=== PATIENT | female | born 1975 | race Caucasian/White ===

== ENCOUNTER 2024-02-13 23:01 | Emergency (ER) | payer OTHER, SELFPAY ==
[2024-02-13 23:06] VITALS: BP 142/80
[2024-02-13 23:19] VITALS: BMI 22.5
[2024-02-13] MEDS: LET TOPICAL ANESTHETIC GEL 3 ML TOPICAL (23:23)
--- NOTE | 2024-02-13 23:39 | ED.SKININJ ---
Addendum entered and electronically signed by Constantine Fragoso DO 02/18/24 22:28:
Laceration size: Above the right lip was 3 cm. Stellate parts
Original Note:
HPI-Injury
General
Chief Complaint: Skin Surface Trauma
Source: patient, spouse and family (Son)
Exam Limitations: none
Time Seen by Provider: 02/13/24 23:30
Nursing documentation reviewed up to this point in time: agreed with
History of Present Illness-Injury
Initial Injury comments:
Pleasant 48-year-old female presents to the emergency department with a laceration to her upper lip. She went to go visit her horse when it reached up and bit her in the lip. Patient denies any other injury.
Phy Exam
General Physical Exam
General Presentation: well appearing and moderate distress
General age: appears stated age
General Skin: warm and dry
General Habitus: normal
General Mental: alert
General Hydration: appears well hydrated
ENT Exam
ENT Exam: EOMI, pharynx normal, neck supple and normocephalic
Eye Exam
Eye Exam: PERRL, cornea clear and conjunctiva normal
Cardiovascular Exam
Cardiovascular Exam: regular rate/rhythm, no edema and normal peripheral pulses
Pulmonary Exam
Pulmonary Exam: lungs clear, no respiratory distress, no rales, no crackles, no rhonchi, no stridor, no wheezing and no cough
Gastrointestinal Exam
Gastrointestinal Exam: normal bowel sounds, non tender, soft, no organomegaly, no pulsatile mass and non distended
Neurological Exam
Neurological Exam: alert, oriented x3 and no motor deficits
Musculoskeletal Exam
Musculoskeletal Exam: full ROM and no edema
Skin Exam
Skin Exam: normal color, warm/dry and laceration
Psychiatric Exam
Psychiatric Exam: normal mood/affect
Course
Orders/Labs/Results
Orders:
Orders
02/13/24 23:20
Lidocaine/Epinephrine/Tetracai [Let Topical Anesthetic Gel] 3 ml .ROUTE .STK-MED ONE
02/13/24 23:23
Lidocaine/Epinephrine/Tetracai [Let Topical Anesthetic Gel] 3 ml TOPICAL NOW STA
02/13/24 23:40
Amoxicillin 875 mg/Clav 125 mg [Augmentin 875 mg/125 mg] 1 tablet PO NOW STA
Tetanus/Diphth/Acelpertussis [Adacel] 0.5 ml IM .ONCE ONE
Vital Signs
Initial and Last Documented VS:
Initial Vital Signs
Pulse Resp BP Pulse Ox
88 18 142/80 100
02/13/24 23:06 02/13/24 23:06 02/13/24 23:06 02/13/24 23:06
Last Documented Vital Signs
Pulse Resp BP Pulse Ox
88 18 142/80 100
02/13/24 23:06 02/13/24 23:06 02/13/24 23:06 02/13/24 23:06
Procedures
Laceration Closure
Right Upper Lip:
Description of Wound Edges: ragged, surrounded by abrasion and macerated
Preparation: cleaned with soap & water
Anesthesia: 1% Lidocaine and Topical-LET
Revision/Debridement: minor revision
Wound exploration: extensive cleaning of contaminated wound and explored to base- no FB
Type of Closure: single layer closure
Skin Closure Material: 6-0 nylon
Number of sutures: 10
Additional information:
Patient tolerated procedure well. There are some areas of the laceration that did not approximate very well due to missing skin. Vermilion border was closed first and approximated well. There was some maceration on either side but I feel that it
lined up fairly well.
*Critical Care Note
Total Time (30-74mins, 75-104mins- exclusive of procedures): Not Applicable
Update Note
Update Note:
I spoke to plastic surgeon, though not on-call, graciously agreed to see patient in his office for routine visit and possible revision.
ED Attending Note
-
Portions of this chart may have been created with voice recognition software.� Occasional wrong word or��sound alike� substitutions may have occurred due to the inherent limitations of voice recognition software.
Discharge Plan
Departure
Patient Disposition: Home (Routine Discharge)
Date of Disposition: 02/14/24
Time of Disposition: 00:42
Patient with high blood pressure during this ER visit?: Yes
Condition: Good
Discharge Problem:
Animal bite of face, Laceration of upper lip, complicated
Instructions: Wound Care (DC), Laceration Repair With Stitches (DC), BLOOD PRESSURE
Prescriptions:
New
amoxicillin-pot clavulanate 875-125 mg tablet
1 tab PO BID Qty: 20 0RF
Referrals:
Leobardo Henderson MD [Active] - Call in 1-3 days for appt
UNKNOWN - PT DOES,NOT KNOW [Family Provider] -
Activity Restrictions/Additional Instructions:
Your tetanus shot was updated today.
It was a pleasure meeting you and taking part in your care. We hope for your continued healing and wellness.
Please read discharge instructions in their entirety. However, they are for general education and may not describe your exact diagnosis at discharge. Information on your ER visit and medical conditions were discussed with you along with appropriate
follow up information...
If indicated, please take your medications as instructed and indicated on discharge paperwork.
Please schedule a follow up appointment as directed. Call to schedule an appointment
Please return to the emergency department with ANY change in, persisting, or worsening of symptoms. If any of your symptoms do not improve, or persist, or become more severe within 6-12 hours, please return to the emergency department for further
care.
Please return to the emergency department if you develop a headache, neck pain/stiffness, fever greater than 100.4F, chest pain, shortness of breath, persistent nausea, vomiting, slurred speech, difficulty walking, numbness/tingling, weakness, signs
of infection or any other symptoms that are worrisome to you.
If you have any questions or concerns please do not hesitate to call the Hospital at or E-mail me directly at [email or web address]
Interventions
Interventions:
*Risk Screen - Suicide Last Done: 02/13/24 23:06
*General Assessment Last Done: 02/13/24 23:19
*Neglect/Abuse Screening Last Done: 02/13/24 23:06
*ED COVID-19 Vaccine History Last Done: 02/13/24 23:19
*Nursing Disposition Last Done: 02/14/24 00:57
ED-Skin Assessment Last Done: 02/13/24 23:19
Discharge Date and Time
Discharge Date/Time: 02/14/24 00:57
Print Language: URDU
[2024-02-14] MEDS: AUGMENTIN 875 MG/125 MG 1 TABLET PO (00:43)
[2024-02-14] MEDS: ADACEL 0.5 ML IM (00:43)
== END 2024-02-14 00:57 | disposition home or self-care (01) ==
LOC: EMR 23:01
PROVIDERS: EMERGENCY PHYSICIAN Student in an Organized Health Care Education/Training Program
DX: S01.511A Laceration without foreign body of lip, initial encounter (principal); W55.11XA Bitten by horse, initial encounter; Z23 Encounter for immunization
CPT/HCPCS: 12052; 90471; 99283; 90715